=== PATIENT | female | born 1990 | race Caucasian/White ===

== ENCOUNTER 2017-01-29 09:34 | Inpatient (IN) | payer OTHER ==
--- NOTE | ~2017-01-29 | PN ---
Unit #: [id number] #: [id number] Patient: ZACKARY VANESSA [id number] [facility] [address] [place] [address] [id number] I MR#: [id number] NAME: ZACKARY VANESSA ROOM: 81 Age: 26 Sex: F Admission Date: 01/29/2017 : 1990 Attending Physician: Toñito Sosa M.D. Admitting Physician: Toñito Sosa M.D. Primary Care Physician: Primary Care Physician No SARA PROGRESS NOTES DATE 01/31/2017 DISCUSSION The patient seems to be in much brighter spirits today. She now has her Nicoderm patch and we have increased her Neurontin. She is calm, pleasant and meeting with her social regarding post discharge treatment options. Dictated by... Toñito Sosa M.D. CB/mario TD: 01/31/2017 15:41 JOB #: [id number] [facility] PROGRESS NOTES Page 1 of 1 X Toñito Sosa MD PROGRESS NOTE
--- NOTE | ~2017-01-29 | PA ---
Unit #: [id number] #: [id number] Patient: ZACKARY VANESSA [id number] [place] [address] [id number] I MR#: [id number] NAME: ZACKARY VANESSA ROOM: [facility] Age: 26 Sex: F Admission Date: 01/29/2017 : 1990 Date of Assessment: 01/29/2017 Attending Physician: Toñito Sosa M.D. Admitting Physician: Toñito Sosa M.D. Primary Care Physician: Primary Care Physician No PSYCHIATRIC ASSESSMENT IDENTIFYING INFORMATION The patient is a 26-year-old white female admitted to the [facility] unit reporting positive suicidal ideation with plan to overdose on meth and heroin. INFORMANT(S) Chart, patient could not be aroused for interview. CHIEF COMPLAINT None given. HISTORY OF PRESENT ILLNESS The patient is a 26-year-old white female brought to this facility by her grandmother early this morning. The patient was reporting positive suicidal ideation with plan to overdose. She has a history of a substance induced CVA approximately 2 years ago. Current stressors include the of the patient's daughter 4 years, financial difficulties and unemployment. The patient reports increasing depression over the past couple of weeks with feelings of sadness and worthlessness. When seen today, the patient is sleeping soundly and multiple attempts to arouse her are unfortunately unsuccessful. PAST PSYCHIATRIC HISTORY The patient was last admitted to this facility under the care of this physician in 2010. FAMILY HISTORY Noncontributory. SOCIAL HISTORY The patient lives with her grandparents. MEDICAL HISTORY As noted previously, the patient is status post CVA. MEDICATION HISTORY 1. Plavix. 2. Neurontin. 3. Effexor XR. ALLERGIES Froy Cruz. Unit #: [id number] #: [id number] Patient: ZACKARY VANESSA SUBSTANCE ABUSE HISTORY Abuse of heroin and methamphetamine as well as cannabis. MENTAL STATUS EXAM At this time, reveals the patient to be a soundly sleeping white female who cannot be aroused for further interview. ASSETS AND LIABILITIES Patient's assets to be assessed. Liabilities, lack of resources, ongoing substance use. ADMITTING DIAGNOSES 1. Major depressive disorder, recurrent, moderate. 2. Cannabis use disorder. 3. Opioid use disorder by history. 4. Methamphetamine use disorder by history. 5. History of CVA. PSYCHIATRIC PLAN/TREATMENT GOALS The patient will continue on previously prescribed medications including Plavix, Neurontin and Effexor XR. She will participate in appropriate lakhani and milieu activities. ESTIMATED LENGTH OF STAY Five to seven days with follow up to take place through the auspices of [facility]. Dictated by... Toñito Sosa M.D. TADEO/mario TD: 01/29/2017 15:34 JOB #: [id number] PSYCHIATRIC ASSESSMENT Page 1 of 1 X Toñito Sosa MD X PSYCHIATRIC ASSESSMENT
--- NOTE | ~2017-01-29 | PN ---
Unit #: [id number] #: [id number] Patient: ZACKARY VANESSA [id number] [facility] [address] [place] [address] [id number] I MR#: [id number] NAME: ZACKARY VANESSA ROOM: [facility] Age: 26 Sex: F Admission Date: 01/29/2017 : 1990 Attending Physician: Toñito Sosa M.D. Admitting Physician: Toñito Sosa M.D. Primary Care Physician: Primary Care Physician Awa RUIZ PROGRESS NOTES DATE 01/30/2017 DISCUSSION The patient angrily demands initiation of a nicotine patch when seen today. I have explained to the patient that we cannot go forward with a patch until we are certain that she is not . The patient also demands an increase in her Neurontin dose. I will go ahead and increase her dose to 300 mg three times daily given her history of CVA and pain related thereto. The patient continues to endorse positive ideation. Dictated by... Toñito Sosa M.D. CB/marisol TD: 01/31/2017 04:47 JOB #: [id number] [facility] PROGRESS NOTES Page 1 of 1 X Toñito Sosa MD PROGRESS NOTE
--- NOTE | ~2017-01-29 | PN ---
Unit #: [id number] #: [id number] Patient: ZACKARY VANESSA [id number] [facility] [address] [place] [address] [id number] I MR#: [id number] NAME: ZACKARY VANESSA ROOM: [facility] Age: 26 Sex: F Admission Date: 01/29/2017 : 1990 Attending Physician: Toñito Sosa M.D. Admitting Physician: Toñito Sosa M.D. Primary Care Physician: Primary Care Physician Awa RUIZ PROGRESS NOTES DATE 02/01/2017 DISCUSSION The patient is in somewhat brighter spirits today. She is pleasant, cooperative, and interactions with peers and staff with completion of detox. We should be able to discharge the patient tomorrow with IOP followup. She does request medical consultation related to tooth and ear pain. Dictated by... Toñito Sosa M.D. TADEO/shamir TD: 02/02/2017 06:52 JOB #: [id number] [facility] PROGRESS NOTES Page 1 of 1 X Toñito Sosa MD PROGRESS NOTE
--- NOTE | ~2017-01-29 | HP ---
Unit #: [id number] #: [id number] Patient: ZACKARY VANESSA [id number] [place] [address] [id number] I MR#: [id number] NAME: ZACKARY VANESSA ROOM: [facility] Age: 26 Sex: F Admission Date: 01/29/2017 : 1990 Attending Physician: Toñito Sosa M.D. Admitting Physician: Toñito Sosa M.D. Primary Care Physician: Primary Care Physician No HISTORY AND PHYSICAL HISTORY OF PRESENT ILLNESS The patient is a 26 year old female admitted to [facility] on 01/29/2017 for suicidal ideation. 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 PAST SURGICAL HISTORY Patient denies. ALLERGIES Cephalosporins. SOCIAL HISTORY Patient still mourns the of her infant daughter from 4 years ago. She is currently unemployed. She lives with her grandparents. Smokes 1 to 2 packs of cigarettes daily. Uses 1 joint of marijuana per day and has a history of heroin and methamphetamine use. FAMILY HISTORY Noncontributory. REVIEW OF SYSTEMS CONSTITUTIONAL: No fever or chills. HEENT: Denies any sore throat, ear pain or runny nose. CARDIOVASCULAR: Denies chest pain, irregular heart rhythm or palpitations. CHEST: Denies shortness of breath or cough. No hemoptysis. GASTROINTESTINAL: Denies nausea, vomiting, diarrhea or chronic constipation. ENDOCRINE: Denies history of increased thirst or urination. No recent significant weight loss or gain. GENITOURINARY: Denies dysuria, frequency, or hematuria. SKIN: Denies any rashes. HEMATOLOGIC: Denies history of increased bleeding or bruising. MUSCULOSKELETAL: Denies any hot, swollen joints. No generalized muscle pain. NEUROLOGIC: Denies problems with vision or speech. No frequent, severe headaches. No numbness, tingling or weakness in any extremities. Denies loss of bladder or bowel control. CURRENT MEDICATIONS 1. Plavix. 2. Neurontin. Unit #: [id number] #: [id number] Patient: ZACKARY VANESSA 3. Effexor. PHYSICAL EXAMINATION GENERAL: She is awake, alert, oriented, in no acute distress. VITAL SIGNS: Temperature 97.9, heart rate 73, respirations 18, blood pressure 108/63. HEIGHT: 5 feet 5. WEIGHT: 180 pounds. SKIN: Warm and dry without rash or lesion. HEENT: Normocephalic. TMs not viewed. Oral and nasal passages clear. Conjunctivae clear. PERRLA. EOMs intact. NECK: Supple without lymphadenopathy or thyromegaly. HEART: Regular rate and rhythm without murmur. LUNGS: Clear. ABDOMEN: Soft, nontender. : Not done. EXTREMITIES: No evidence of cyanosis, clubbing or edema. Moves all without focal deficit. NEUROLOGICAL: Grossly within normal limits. Cranial Nerves: II: Visual ramon are intact. III, IV AND : Extraocular movements are intact. Pupils are equal, round and reactive to light. V: Facial sensation is grossly normal. VII: Facial movements and expression are normal. VIII: Auditory acuity grossly intact. IX, X: Uvula is midline. Phonation is normal. XI: Patient shrugs shoulders and turns head normally. XII: Tongue protrudes in the midline. Sensory and Motor Function: Sensory and motor sensation is grossly normal. Motor: moves all extremities well. Coordination: Gait is normal. Deep Tendon Reflexes: Intact. IMPRESSION 1. Psychiatric admission. 2. History of stroke. RECOMMENDATIONS PSYCHIATRIC: Per psychiatrist. MEDICAL: No contraindications to participate in facility's activities. MEDICAL PROGNOSIS Good. MEDICAL CONDITION Stable. Dictated by... Jovon Camarena/mario TD: 01/29/2017 19:56 JOB #: [id number] Unit #: [id number] #: [id number] Patient: ZACKARY VANESSA HISTORY AND PHYSICAL Page 1 of 1 X ARELY ACOSTA APRN HISTORY AND PHYSICAL
--- NOTE | ~2017-01-29 | PN ---
Unit #: [id number] #: [id number] Patient: ZACKARY VANESSA [id number] [facility] [address] [place] [address] [id number] I MR#: [id number] NAME: ZACKARY VANESSA ROOM: [facility] Age: 26 Sex: F Admission Date: 01/29/2017 : 1990 Attending Physician: Toñito Sosa M.D. Admitting Physician: Toñito Sosa M.D. Primary Care Physician: Primary Care Physician Awa RUIZ PROGRESS NOTES DATE 01/31/2017 DISCUSSION The patient is much more pleasant and cooperative when seen today. She is expressing interest in residential chemical dependence treatment and referrals are being made. Dictated by... Toñito Sosa M.D. CB/mario TD: 01/31/2017 15:40 JOB #: [id number] [facility] PROGRESS NOTES Page 1 of 1 X Toñito Sosa MD X PROGRESS NOTE
--- NOTE | ~2017-01-29 | DS ---
Unit #: [id number] #: [id number] Patient: ZACKARY VANESSA [id number] [place] [address] [id number] I MR#: [id number] NAME: ZACKARY VANESSA ROOM: [facility] Age: 26 Sex: F Admission Date: 01/29/2017 : 1990 Discharge Date: 02/02/2017 Attending Physician: Toñito Sosa M.D. Primary Care Physician: Primary Care Physician No DISCHARGE SUMMARY REASON FOR ADMISSION The patient is a 26-year-old white female, admitted to the [facility] unit with a history of methamphetamine and heroin abuse. HOSPITAL COURSE The patient was admitted to the [facility] unit and placed on suicide precautions. She was restarted on previously prescribed medications including Plavix, Neurontin, and Effexor XR. The patient was initially angry that she was not given a nicotine patch, but it was explained that she could not have a patch until we were certain that she was not . She seemed to understand this and as her stay in the hospital progressed, she became much more pleasant and cooperative and interactive within the therapeutic milieu. By 02/02/2017, the patient was requesting discharge with a plan to followup through the auspices of the intensive outpatient program provided by this facility. As per her request, discharge was ordered. FINAL DIAGNOSES Dysthymic disorder, methamphetamine use disorder, opioid use disorder, history of cerebrovascular accident. DISPOSITION ON DISCHARGE The patient is discharged on the following medications; Plavix 75 mg once daily for anticoagulation, Neurontin 300 mg b.i.d. for pain, Effexor XR 75 mg daily for depression. DISCHARGE INSTRUCTIONS No dietary or physical restrictions were placed on the patient at the time of discharge. FOLLOWUP She will follow in the chemical dependency intensive outpatient program provided by this facility. PROGNOSIS Her prognosis is fair. Dictated by... Toñito Sosa M.D. CB/heather Unit #: [id number] #: [id number] Patient: ZACKARY VANESSA TD: 02/03/2017 01:36 JOB #: [id number] DISCHARGE SUMMARY Page 1 of 1 X Toñito Sosa MD X DISCHARGE SUMMARY
[2017-01-30 15:49] LABS: URINE APPEARANCE CLOUDY; URINE BILIRUBIN NEG (NEG); URINE BLOOD TRACE (NEG); URINE COLOR DK YELLOW; URINE GLUCOSE NEG (NEG); URINE KETONE TRACE (NEG); URINE LEUKOCYTE ESTERASE 1+ (NEG); URINE NITRATE NEG (NEG); URINE PH 5.5 (5-8); URINE PROTEIN NEG (NEG); URINE SPECIFIC GRAVITY 1.027 (1.003-1.035)
[2017-01-30 15:52] LABS: URINE BACTERIA AUWI 4+ (NEGATIVE); URINE SQUAMOUS EPITHELIAL CELL FEW /[HPF]
[2017-01-30 15:54] LABS: U HYALINE CASTS AUWI 0-2 /[LPF]
[2017-01-30 16:14] LABS: AMPHETAMINE NEG (NEG); BARBITURATES NEG (NEG); BENZODIAZEPINES NEG (NEG); COCAINE NEG (NEG); MARIJUANA POS (NEG); OPIATES NEG (NEG); TRICYCLIC ANTIDEPRESSANTS NEG (NEG); U METHADONE NEG (NEG)
== END 2017-02-02 16:00 | disposition home or self-care (01) | DRG 881 ==
LOC: P1E 09:34
PROVIDERS: Specialist
DX: F34.1 Dysthymic disorder (principal); I69.351 Hemiplegia and hemiparesis following cerebral infarction affecting right dominant side; I10 Essential (primary) hypertension; F15.10 Other stimulant abuse, uncomplicated; F11.10 Opioid abuse, uncomplicated
CPT/HCPCS: 80307; 81003; 84703

== ENCOUNTER 2017-04-01 21:02 | Inpatient (IN) | payer OTHER ==
--- NOTE | ~2017-04-01 | DS ---
Unit #: [id number] #: [id number] Patient: ZACKARY SANTOS [id number] [facility] [address] [place] [address] [id number] I MR#: [id number] NAME: ZACKARY SANTOS ROOM: P1 Age: 26 Sex: F Admission Date: 04/01/2017 : 1990 Discharge Date: 04/08/2017 Attending Physician: Bienvenido Lopes M.D. Primary Care Physician: Generic Doctor Not In System DISCHARGE SUMMARY IDENTIFYING DATA Ms. Santos is a 25-year-old single white female, who is a resident of [place], [place], and was transferred to us [facility], where she was brought in on a mental inquest warrant taken out by her grandmother. CHIEF COMPLAINT "I threatened suicide constantly." DISCHARGE DIAGNOSES Psychiatric: Major depressive disorder, recurrent, moderate, without psychotic features; cannabis dependence, moderate; methamphetamine abuse, moderate; cocaine abuse, moderate. Medical: History of cerebrovascular accident. Stressors: Moderate psychosocial stressors. HISTORY OF PRESENT ILLNESS Please see initial psychiatric evaluation for details. PAST PSYCHIATRIC HISTORY Please see initial psychiatric evaluation for details. PAST MEDICAL HISTORY Please see initial psychiatric evaluation for details. HOSPITAL COURSE The patient was admitted to the adult psychiatric unit at [facility] mar[facility] Benedict and was oriented to the hospital environment. Routine p.r.n. medications were initiated, and she was started back on her home medications and mental inquest warrant was maintained and she was seen to be anxious, withdrawn, very seclusive to herself, unkempt, disheveled, guarding, and refusing to talk, interact, or socialize and as such, was not making much progress. Effexor however was initiated as an antidepressant and she was closely monitored. She was taking medications regularly and was tolerating them fairly well and was able to show a decent therapeutic response. She did go to the [facility] court and was able to sign and agreed order and as such, it was decided that she will be discharged home and will continue treatment on an outpatient basis. DISCHARGE MEDICATIONS Effexor XR 75 mg a day for depression. DISCHARGE CONDITION Stable. Unit #: [id number] #: [id number] Patient: ZACKARY SANTOS PROGNOSIS Fair. Dictated by... Sage Connors/heather TD: 04/08/2017 06:47 JOB #: [id number] DISCHARGE SUMMARY Page 1 of 1 X Bienvenido Lopes MD DISCHARGE SUMMARY
--- NOTE | ~2017-04-01 | PN ---
Unit #: [id number] #: [id number] Patient: ZACKARY SANTOS [id number] [facility] [address] [place] [address] [id number] I MR#: [id number] NAME: ZACKARY SANTOS ROOM: [facility] Age: 26 Sex: F Admission Date: 04/01/2017 : 1990 Attending Physician: Bienvenido Lopes M.D. Admitting Physician: Bienvenido Lopes M.D. Primary Care Physician: Generic Doctor Not In System [facility] PROGRESS NOTES DATE April 03, 2017 DISCUSSION Ms. Santos is a 26-year-old white female, with mood disorder, and substance abuse, who was seen today and chart was reviewed and the case was discussed with the staff. She has been anxious, withdrawn, and seclusive to herself although she has been taking the medications, however, she still appears to be in distress and discomfort. MENTAL STATUS EXAMINATION Young white female, who was casually dressed with fair personal hygiene and appears to be in no acute distress or discomfort. She was awake and alert on interaction with intact orientation. Her mood is anxious with a congruent affect. The patient denies any suicidal or homicidal ideations. Her insight and judgment remain slightly impaired. TREATMENT PLAN We will continue her on her current treatment protocol, and will monitor her response to the medications, and make further adjustments as needed. Dictated by... Sage Connors/shamir TD: 04/04/2017 10:44 JOB #: [id number] [facility] PROGRESS NOTES Page 1 of 1 X Bienvenido Lopes MD PROGRESS NOTE
--- NOTE | ~2017-04-01 | PN ---
Unit #: [id number] #: [id number] Patient: ZACKARY SANTOS [id number] [facility] [address] [place] [address] [id number] I MR#: [id number] NAME: ZACKARY SANTOS ROOM: [facility] Age: 26 Sex: F Admission Date: 04/01/2017 : 1990 Attending Physician: Bienvenido Lopes M.D. Admitting Physician: Bienvenido Lopes M.D. Primary Care Physician: Generic Doctor Not In System [facility] PROGRESS NOTES DATE 04/04/2017 DISCUSSION Ms. Santos is a 26-year-old white female, with substance abuse and with mood disorder, who was seen today and chart was reviewed and the case was discussed with the staff. She is extremely unkempt and disheveled and has stayed in her bed most of the weekend and as such was seen to have significant body odor and actually the whole room was difficult to breathe in. The patient has not be functioning or taking care of herself and yet she stated she is ready to get out of here and then she informed me that she was here on an MIW and I informed her that she will be appearing in front of the MIW court before discharge planning could be initiated and she once again seemed to be exhibiting a very negative attitude about that and staff reported that she has not been participating in treatment related opportunities. MENTAL STATUS EXAMINATION Young white female, who was casually dressed with poor personal hygiene and appears to be in no acute distress or discomfort. She was awake and alert having fair attention and concentration. Her mood is anxious with a congruent affect. Her speech is slow and restricted in content. Her thought process showed association or paranoid ideation, . TREATMENT PLAN We will continue her on her current medication and her treatment protocol. Will monitor her response and encourage to show better compliance to treatment recommendation. Will continue followup. Dictated by... Sage Connors/ts TD: 04/04/2017 11:34 JOB #: [id number] Unit #: [id number] #: [id number] Patient: ZACKARY SANTOS PROGRESS NOTES Page 1 of 1 X Bienvenido Lopes MD PROGRESS NOTE
--- NOTE | ~2017-04-01 | CO ---
Unit #: [id number] #: [id number] Patient: ZACKARY VANESSA [id number] [place] [address] [id number] I MR#: [id number] NAME: ZACKARY VANESSA ROOM: [facility] Age: 26 Sex: F Admission Date: 04/01/2017 : 1990 Attending Physician: Bienvenido Lopes M.D. Primary Care Physician: Han Doctor Not In System Consultation Date: 04/03/2017 CONSULTATION REPORT HISTORY OF PRESENT ILLNESS Zackary reports a history of (1) 2 or 3 years ago that was caused by a clot in her brain at that time, it was due to her heavy drug use. Since then, she is supposed to be taking Plavix, but does not take as prescribed, only when she remembers it. Now, she has complaints of blurry vision for the past 2 days. She does not have a history of contacts or glasses and never has had blurry vision in the past. She also has complaints of a mild headache that she believes is caused by the blurry vision. Blood pressure has been normal, 132/93 at its highest. She has no other complaints. PHYSICAL EXAMINATION CARDIAC: Regular rate and rhythm. No murmurs, gallops, or rubs. RESPIRATORY: Clear to auscultation bilaterally. NEUROLOGIC: Cranial nerves intact. Normal sensation. Normal DTRs. ASSESSMENT AND PLAN Blurry vision. Other than the blurry vision, she is feeling well. She is participating in groups. (2) . She is not having any other complaints. At this time, she has already started her Plavix and I do not see any reason to make any other changes. She was instructed to notify us if she has slurred speech or weakness in any of her extremities and she agrees with this. Dictated by... Jovon Vasquez/heather TD: 04/03/2017 17:43 JOB #: [id number] CONSULTATION REPORT Page 1 of 1 X YONI,ANDRIY MELENDEZ X CONSULTATION REPORT
--- NOTE | ~2017-04-01 | HP ---
Unit #: [id number] #: [id number] Patient: ZACKARY VANESSA [id number] [facility] [address] [place] [address] [id number] I MR#: [id number] NAME: ZACKARY VANESSA ROOM: [facility] Age: 26 Sex: F Admission Date: 04/01/2017 : 1990 Attending Physician: Bienvenido Lopes M.D. Admitting Physician: Bienvenido Lopes M.D. Primary Care Physician: Generic Doctor Not In System HISTORY AND PHYSICAL HISTORY OF PRESENT ILLNESS Zackary is a 26-year-old female admitted on 04/01/2017 to [facility] after grandmother took out an MIW regarding her behavior. She also had concerns because Zackary has been using marijuana, meth and cocaine daily. PAST MEDICAL HISTORY Stroke in 2014. PAST SURGICAL HISTORY 1. ACL tear repair. 2. Tonsillectomy. 3. Bilateral ear tube placement. ALLERGIES Ceclor and cefotaxime. SOCIAL HISTORY Daily use of meth, cocaine. Smokes 1-1/2 packs of cigarettes daily and reports social alcohol use. She is currently single and living with a friend. FAMILY HISTORY Noncontributory. REVIEW OF SYSTEMS CONSTITUTIONAL: No fever or chills. HEENT: Denies any sore throat, ear pain or runny nose. CARDIOVASCULAR: Denies chest pain, irregular heart rhythm or palpitations. CHEST: Denies shortness of breath or cough. No hemoptysis. GASTROINTESTINAL: Denies nausea, vomiting, diarrhea or chronic constipation. ENDOCRINE: Denies history of increased thirst or urination. No recent significant weight loss or gain. GENITOURINARY: Denies dysuria, frequency, or hematuria. SKIN: Denies any rashes. HEMATOLOGIC: Denies history of increased bleeding or bruising. MUSCULOSKELETAL: Denies any hot, swollen joints. No generalized muscle pain. NEUROLOGIC: Denies problems with vision or speech. No frequent, severe headaches. No numbness, tingling or weakness in any extremities. Denies loss of bladder or bowel control. CURRENT MEDICATIONS Unit #: [id number] #: [id number] Patient: ZACKARY VANESSA 1. Plavix. 2. Neurontin. 3. Effexor. PHYSICAL EXAMINATION GENERAL: Alert, oriented, in no acute distress. VITAL SIGNS: Blood pressure 106/71, heart rate 78, respirations 16, temperature 98.2. HEIGHT: 5 feet 5. WEIGHT: 170 SKIN: Warm and dry without rash or lesion. HEENT: Normocephalic. TMs not viewed. Oral and nasal passages clear. Conjunctivae clear. PERRLA. EOMs intact. NECK: Supple without lymphadenopathy or thyromegaly. HEART: Regular rate and rhythm without murmur. LUNGS: Clear. ABDOMEN: Soft, nontender, without masses or hepatosplenomegaly. : Not done. EXTREMITIES: No evidence of cyanosis, clubbing or edema. Moves all without focal deficit. NEUROLOGICAL: Grossly within normal limits. Cranial Nerves: II: Visual ramon are intact. III, IV AND : Extraocular movements are intact. Pupils are equal, round and reactive to light. V: Facial sensation is grossly normal. VII: Facial movements and expression are normal. VIII: Auditory acuity grossly intact. IX, X: Uvula is midline. Phonation is normal. XI: Patient shrugs shoulders and turns head normally. XII: Tongue protrudes in the midline. Sensory and Motor Function: Sensory and motor sensation is grossly normal. Motor: moves all extremities well. Coordination: Gait is normal. Deep Tendon Reflexes: Intact. IMPRESSION 1. Psychiatric admission. 2. History of stroke. RECOMMENDATIONS PSYCHIATRIC: Per psychiatrist. MEDICAL: No contraindications to participate in facility's activities. MEDICAL PROGNOSIS Good. MEDICAL CONDITION Stable. Dictated by... Jovon Vasquez/mario TD: 04/02/2017 19:36 JOB #: [id number] Unit #: [id number] #: [id number] Patient: ZACKARY VANESSA HISTORY AND PHYSICAL Page 1 of 1 X ANDRIY VALLEJO APRN HISTORY AND PHYSICAL
--- NOTE | ~2017-04-01 | PN ---
Unit #: [id number] #: [id number] Patient: ZACKARY SANTOS [id number] [facility] [address] [place] [address] [id number] MR#: [id number] NAME: ZACKARY SANTOS ROOM: [facility] Age: 26 Sex: F Admission Date: 04/01/2017 : 1990 Attending Physician: Bienvenido Lopes M.D. Admitting Physician: Bienvenido Lopes M.D. Primary Care Physician: Generic Doctor Not In System [facility] PROGRESS NOTES DATE 04/05/2017 DISCUSSION Ms. Santos is a 26-year-old white female who was seen today and chart was reviewed and case was discussed with the staff. She has been anxious, withdrawn, disorganized, unkempt, disheveled and rather seclusive to herself. Meanwhile, she has been cooperative with treatment recommendations and has been taking medications and tolerating them fairly well with no reported side effects. MENTAL STATUS EXAMINATION Young white female who was casually dressed with marginal personal hygiene and appears to be in no acute distress or discomfort. She was awake and alert with impaired attention and concentration. Her mood was anxious and depressed with congruent affect. Speech is slow and restricted in content. Her thought processes were disorganized with some looseness of associations, thought blocking and paranoid ideations. Her insight and judgement remains significantly impaired. TREATMENT PLAN Will continue on current medications and treatment protocol. Will monitor her response and make further adjustments as needed. Dictated by... Sage Connors/mario TD: 04/06/2017 17:33 JOB #: [id number] Unit #: [id number] #: [id number] Patient: ZACKARY SANTOS PROGRESS NOTES Page 1 of 1 X Bienvenido Lopes MD X PROGRESS NOTE
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
--- NOTE | ~2017-04-01 | PN ---
Unit #: [id number] #: [id number] Patient: ZACKARY SANTOS [id number] [facility] [address] [place] [address] [id number] I MR#: [id number] NAME: ZACKARY SANTOS ROOM: [facility] Age: 26 Sex: F Admission Date: 04/01/2017 : 1990 Attending Physician: Bienvenido Lopes M.D. Admitting Physician: Bienvenido Lopes M.D. Primary Care Physician: Generic Doctor Not In System [facility] PROGRESS NOTES DATE 04/07/2017 DISCUSSION Ms. Santos is a 26-year-old white female who was seen today and chart was reviewed and case was discussed with the staff. She has been anxious, withdrawn and rather seclusive to herself. Meanwhile, she has been cooperative with treatment recommendations and has been taking medications and tolerating them fairly well with no reported side effects. MENTAL STATUS EXAMINATION Young white female who was casually dressed with fair personal hygiene and appears to be in no acute distress or discomfort. She was awake and alert on interaction with intact orientation. Her mood was anxious with congruent affect. She denies any suicidal or homicidal ideation. Her insight and judgement remains significantly impaired. TREATMENT PLAN Will continue on current treatment protocol. Will monitor response and make further adjustments as needed. Dictated by... Sage Connors/mario TD: 04/07/2017 17:52 JOB #: [id number] [facility] PROGRESS NOTES Page 1 of 1 X Bienvenido Lopes MD PROGRESS NOTE
--- NOTE | ~2017-04-01 | PN ---
Unit #: [id number] #: [id number] Patient: ZACKARY SANTOS [id number] [facility] [address] [place] [address] [id number] I MR#: [id number] NAME: ZACKARY SANTOS ROOM: P179 Age: 26 Sex: F Admission Date: 04/01/2017 : 1990 Attending Physician: Bienvenido Lopes M.D. Admitting Physician: Bienvenido Lopes M.D. Primary Care Physician: Generic Doctor Not In System [facility] PROGRESS NOTES DATE 04/06/2017 DISCUSSION Ms. Santos is a 26-year-old white female who was seen today and chart was reviewed and case was discussed with the staff. She remains anxious, withdrawn, disorganized and seclusive to herself refusing to carry on any meaningful conversation and is on a MIW and is scheduled to go to the MIW court later this afternoon; however, family called the social economist yesterday wanting me to initiate paperwork for (1) . However, I informed them that she is already on MIW and that she will be going to the MIW court and I will anticipate her being to be able to sign agreed order which will allow her stay in treatment but family feels that would not sign an agreed order and I once again informed them in that case, she will not be able to leave and she would have another court hearing later on. Meanwhile, she has been meaning to participate in treatment related activities and as such she remains at poor prognosis. Dictated by... Sage Connors/marisol TD: 04/07/2017 00:28 JOB #: [id number] [facility] PROGRESS NOTES Page 1 of 1 X Bienvenido Lopes MD PROGRESS NOTE
[2017-04-06 09:59] LABS: URINE APPEARANCE CLOUDY; URINE BILIRUBIN NEG (NEG); URINE BLOOD TRACE (NEG); URINE COLOR YELLOW; URINE GLUCOSE NEG (NEG); URINE KETONE NEG (NEG); URINE LEUKOCYTE ESTERASE NEG (NEG); URINE NITRATE NEG (NEG); URINE PH 7.5 (5-8); URINE PROTEIN NEG (NEG); URINE SPECIFIC GRAVITY 1.012 (1.003-1.035); URINE UROBILINOGEN 0.2 MG/DL (NEG)
[2017-04-06 10:01] LABS: U HYALINE CASTS AUWI 0-2 /[LPF]; URINE BACTERIA AUWI 4+ (NEGATIVE); URINE SQUAMOUS EPITHELIAL CELL OCC /[HPF]
[2017-04-06 10:59] LABS: URBCS1 AUWI 0-2 /[HPF] (0-2); UWBCS1 AUWI 0-2 (0-5)
== END 2017-04-08 10:20 | DRG 885 ==
LOC: P1E 23:46
PROVIDERS: Psychiatry & Neurology Psychiatry
DX: F33.1 Major depressive disorder, recurrent, moderate (principal); F15.20 Other stimulant dependence, uncomplicated; F12.20 Cannabis dependence, uncomplicated; F14.10 Cocaine abuse, uncomplicated; Z86.73 Personal history of transient ischemic attack (TIA), and cerebral infarction without residual deficits; Z88.8 Allergy status to other drugs, medicaments and biological substances; F17.210 Nicotine dependence, cigarettes, uncomplicated; H53.8 Other visual disturbances
CPT/HCPCS: 81003